=== PATIENT | female | born 1955 | race Caucasian/White ===

== ENCOUNTER 2025-05-21 08:18 | Emergency (ER) | payer MEDICARE ==
[~2025-05-21] VITALS: Ht 170.2 cm; Wt 78.5 kg
[2025-05-21 08:34] VITALS: TEMP 98
[2025-05-21] MEDS ORDERED: MORPHINE SULFATE INJ 4 MG/ML DISP.SYRIN ONE (08:55)
[2025-05-21] MEDS ORDERED: ONDANSETRON HCL/PF 4 MG/2 ML VIAL ONE ×2 (08:55→09:35)
[2025-05-21] MEDS: ONDANSETRON HCL/PF 4 MG/2 ML VIAL IV ONE (08:57)
[2025-05-21] MEDS: MORPHINE SULFATE INJ 2 MG/ML DISP.SYRIN IV ONE (09:01)
[2025-05-21] MEDS ORDERED: LIDOCAINE HCL/MPF 1% 30 ML VIAL IJ ONE (09:07)
[2025-05-21] MEDS: LIDOCAINE 1%-EPI 1:100,000 50 ML VIAL IJ ONE (09:11)
[2025-05-21] MEDS ORDERED: ONDANSETRON HCL/PF - ER 4 MG/2 ML VIAL IV ONE (09:30)
[2025-05-21] MEDS ORDERED: PROPOFOL 20 ML IV ONE (09:35)
[2025-05-21] MEDS ORDERED: KETAMINE HCL (500MG/10ML) 50 MG/ML VIAL ONE (09:35)
[2025-05-21] MEDS: KETAMINE HCL (500MG/10ML) 50 MG/ML VIAL IV ONE (10:13)
[2025-05-21] MEDS: PROPOFOL 200 MG/20 ML VIAL IV ONE ×3 (10:14→10:32)
[2025-05-21] MEDS ORDERED: HYDR-4209 PO (11:06)
[2025-05-21] MEDS ORDERED: IBUP-1957 PO (11:06)
[2025-05-21] MEDS ORDERED: ONDA4TAB11 PO (11:06)
[2025-05-21] MEDS ORDERED: DOCU-141 PO (11:06)
[2025-05-21] MEDS ORDERED: HYDROCODONE/APAP 5/325MG TABLET ONE (11:15)
[2025-05-21] MEDS: HYDROCODONE/APAP 5/325MG TABLET PO ONE (11:20)
[2025-05-21 11:47] VITALS: BP 173/99; O2SAT 96
== END 2025-05-21 11:41 | disposition home or self-care (01) ==
LOC: ER 08:23
DX: S62.102A Fracture of unspecified carpal bone, left wrist, initial encounter for closed fracture (principal); I11.9 Hypertensive heart disease without heart failure; E78.5 Hyperlipidemia, unspecified; I25.10 Atherosclerotic heart disease of native coronary artery without angina pectoris; Z86.718 Personal history of other venous thrombosis and embolism; W01.0XXA Fall on same level from slipping, tripping and stumbling without subsequent striking against object, initial encounter; Y93.89 Activity, other specified; Y92.89 Other specified places as the place of occurrence of the external cause; Y99.8 Other external cause status
CPT/HCPCS: 25605; 99152; 73110; 96375; 96374; 73100; 99285; J2704; J3490 ×3; J2270; J2405 ×3; J7040; A4223; G0500